=== PATIENT | male | born 1990 | race Caucasian/White ===

== ENCOUNTER 2017-03-15 16:31 | Inpatient (IN) | payer BC ==
--- NOTE | 2017-03-15 16:43 | CPEKG ---
Heart Rate: 126 RR Interval: 476 P-R Interval: 136 QRSD Interval: 106 QT Interval: 328 QTC Interval: 475 P [place]: 78 QRS [place]: 98 T Wave [place]: -14 EKG Severity - ABNORMAL ECG - EKG Impression: SINUS TACHYCARDIA EKG Impression: INFERIOR Q WAVES, PROBABLY NORMAL VARIATION EKG Impression: NONSPECIFIC T ABNORMALITIES, INFERIOR LEADS EKG Impression: BORDERLINE PROLONGED QT INTERVAL Electronically Signed By: Addie Szymanski 15-Mar-2017 22:38:22
[2017-03-15] MEDS ORDERED: NS 1,000 ML IV ONE ×2 (16:50→19:17)
[2017-03-15] MEDS ORDERED: NALOXONE HCL 0.4 MG/ML INJ IVP ONE (16:50)
--- NOTE | 2017-03-15 16:54 | EDPHY ---
H & P HPI/ROS: CHIEF COMPLAINT: Altered mental status, heroin overdose HISTORY OF PRESENT ILLNESS: The patient is a 26-year-old male who is brought in by EMS with reported heroin overdose. The patient was found by his roommates down after injecting IV heroin. The injection occurred sometime between 9:00 a.m. and arrival of EMS. EMS reports that there may or may not have been a short course of CPR. EMS found the patient with strong pulse but apneic. Patient was given Narcan 2 IN followed by 1 IV. Patient's mental status improved. He continued to be hypoxic in route with oxygen saturation in the mid 80s. Patient is deaf. This is new per EMS. REVIEW OF SYSTEMS: Review of systems is limited due to the patient's new deafness and limited responses. Past Medical/Surgical History: Denies Past surgical history: Denies Allergies: Denies Social history: The patient uses heroin. Smoking Status: Unknown if ever smoked Physical Exam: Vitals noted. Tachycardic in the 130s. Systolic pressure is 101. Hypoxic mid 80s. GENERAL: Eyes open, in mild distress. Patient seems slightly somnolent HEENT: Eyes normal to inspection, normal pharynx, no signs of dehydration. NECK: No thyromegaly, no lymphadenopathy, supple. RESPIRATORY: Miild crackles on the left lung, no rhonchi or wheezing. CVS: tachycardia with regular rhythm, no rubs, murmurs, or gallops. ABDOMEN: Soft, nontender, nondistended, no organomegaly. BACK: Normal to inspection, no CVA tenderness. SKIN: Normal color, no rash, warm. Mild diaphoresis. No pallor. EXTREMITIES: No pedal edema, no calf tenderness, no Homans sign or cords, no joint swelling. NEURO/PSYCH: Eyes open but mildly somnolent. Unable to determine orientation. Calm. Moves all extremities purposefully. No obvious cranial nerve deficit. Constitutional: Initial Vital Signs Heart Rate 126 H 03/15/17 16:35 Respiratory Rate 26 H 03/15/17 16:35 Blood Pressure 101/55 L 03/15/17 16:35 O2 Sat (%) 82 L 03/15/17 16:35 O2 Delivery Mode Hi-Flow Nasal Cannula O2 (L/minute) 15 Allergies/Adverse Reactions: No Known Allergies Allergy (Unverified 04/23/17 16:55) Home Medications: Medication Instructions Recorded NK [No Known Home Meds] 03/15/17 Medical Decision Making ED Course/Re-evaluation: In the emergency department I met EMS on arrival. On his arrival he had abnormal vital signs with an elevated heart rate and hypoxia. He was placed on a non-rebreather. Laboratory studies, EKG and chest x-ray were ordered. Head CT and C-spine CT were ordered. After his initial evaluation the patient had new desaturation into the low 80s. Jaw thrust was performed. He was given Narcan 1 mg IV. Patient continued to open his eyes. He was instructed take deep breaths. His oxygen saturation improved to the mid 80s. Patient was given a 2nd dose of Narcan IV. This was given for continued low oxygen saturation. The patient was switched to a high-flow nasal cannula. Portable chest x-ray was obtained. The patient has noted infiltrate/ cephalization on the left lung field. EKG shows sinus tachycardia 126. Normal axis. Normal intervals. No significant ST or T-wave abnormalities. Based on the imaging studies and presentation he was given Levaquin 750 mg IV. Blood cultures were obtained. Lactic acid is pending. I-STAT revealed sodium 143, potassium 4.1, chloride 100, glucose 73, BUN 21, creatinine elevated at 2.2. Hematocrit was 47%. The patient tolerated the high-flow nasal cannula well. CBC is pending. His lactic acid was noted be elevated at 7.1. This could be secondary to being apneic and found down. There is also possibility the patient could be septic due to aspiration pneumonia. My considerations include aspiration pneumonia with sepsis versus flash pulmonary edema. Patient will be given normal saline 30 milliliters/kilogram cautiously and slowly. If his oxygen saturation drops during fluid administration and will be discontinued with concern for fluid overload. I do not feel the patient needs pressors at this time. I discussed the case with Dr. Neal. He accepts the patient. He will admit the patient to the ICU. Patient's girlfriend arrived and gave further history. She states that the patient relapsed on heroin last . She left for work this morning the patient was normal. She was unable to contact him by phone when she returned home she found him on the floor. She states that he recently started smoking cigarettes. She does not know of any other drug use. He has a history of bipolar disorder, depression, anxiety. Patient was noted to have an elevated troponin. The patient's BNP was mildly elevated in the 200s. Dr. Neal ordered a cardiac echo. On recheck the patient was alert. He was maintained his airway. Heart rate was in the 120s. His O2 saturation was in the mid 90s. Differential Diagnosis: My differential includes but is not limited to heroin overdose, aspiration, pulmonary edema, foreign body, pneumonia, electrolyte abnormality, sugar abnormality, renal failure Critical Care Time: The patient required 40 minutes of critical care time. This was exclusive of any unbundled procedure. This was due to extensive time spent at the patient's bedside, frequent rechecks, history from EMS and his girlfriend, consultation with the hospitalist service and admission to the ICU. - Data Points Laboratory Results: Laboratory Results 03/15/17 16:42 03/15/17 16:42 03/15/17 03/15/17 03/15/17 16:43 16:42 16:42 WBC RBC Hgb POC Hgb 16.0 gm/dL gm/dL (14.5-17.3) Hct POC Hct 47 % % (42.8-50.6) MCV MCH MCHC RDW Plt Count MPV Neut % (Auto) Lymph % (Auto) [place] % (Auto) Eos % (Auto) Baso % (Auto) Nucleat RBC Rel Count Absolute Neuts (auto) Absolute Lymphs (auto) Absolute Monos (auto) Absolute Eos (auto) Absolute Basos (auto) Absolute Nucleated RBC Immature Gran % Seg Neutrophils % Band Neutrophils % Lymphocytes % Monocytes % Metamyelocytes % Immature Gran # Absolute Seg Neuts Absolute Band Neuts Absolute Lymphocytes Absolute Monocytes Absolute Metamyelocyte RBC/WBC/PLT Morphology Atypical Lymphocytes Platelet Estimate Giant Platelets PT INR APTT ABG Lactic Acid POC Sodium 143 mEq/L mEq/L (134-144) Sodium 140 mEq/L mEq/L (134-144) POC Potassium 4.1 mEq/L mEq/L (3.3-5.0) Potassium 4.6 mEq/L mEq/L (3.5-5.2) POC Chloride 100 mEq/L mEq/L (96-108) Chloride 102 mEq/L mEq/L (97-110) Carbon Dioxide 23 mEq/l mEq/l (22-31) Anion Gap 15 mEq/L mEq/L (8-16) POC BUN 21 mg/dL mg/dL (7-23) BUN 20 mg/dL mg/dL (7-23) Creatinine 2.1 mg/dL H mg/dL (0.7-1.3) POC Creatinine 2.2 mg/dL H mg/dL (0.8-1.5) Estimated GFR 39 Glucose 70 mg/dL mg/dL (70-100) POC Glucose 73 mg/dL mg/dL (70-100) Calcium 8.7 mg/dL mg/dL (8.5-10.4) Total Bilirubin 0.7 mg/dL mg/dL (0.1-1.4) Troponin I Pending 0.257 ng/mL H ng/mL (0-0.034) NT-Pro-B Natriuret Pep 217 pg/mL H pg/mL (0-125) 03/15/17 03/15/17 03/15/17 16:42 16:42 16:42 WBC 7.31 10^3/uL 10^3/uL (3.80-9.50) RBC 5.58 10^6/uL 10^6/uL (4.40-6.38) Hgb 16.2 g/dL g/dL (13.7-17.5) POC Hgb Hct 47.1 % % (40.0-51.0) POC Hct MCV 84.4 fL fL (81.5-99.8) MCH 29.0 pg pg (27.9-34.1) MCHC 34.4 g/dL g/dL (32.4-36.7) RDW 11.8 % % (11.5-15.2) Plt Count 258 10^3/uL 10^3/uL (150-400) MPV 9.0 fL fL (8.7-11.7) Neut % (Auto) 79.2 % H % (39.3-74.2) Lymph % (Auto) 15.3 % % (15.0-45.0) [place] % (Auto) 4.7 % % (4.5-13.0) Eos % (Auto) 0.3 % L % (0.6-7.6) Baso % (Auto) 0.4 % % (0.3-1.7) Nucleat RBC Rel Count 0.0 % % (0.0-0.2) Absolute Neuts (auto) 5.79 10^3/uL 10^3/uL (1.70-6.50) Absolute Lymphs (auto) 1.12 10^3/uL 10^3/uL (1.00-3.00) Absolute Monos (auto) 0.34 10^3/uL 10^3/uL (0.30-0.80) Absolute Eos (auto) 0.02 10^3/uL L 10^3/uL (0.03-0.40) Absolute Basos (auto) 0.03 10^3/uL 10^3/uL (0.02-0.10) Absolute Nucleated RBC 0.00 10^3/uL 10^3/uL (0-0.01) Immature Gran % 0.1 % % (0.0-1.1) Seg Neutrophils % 40 % % Band Neutrophils % 36 % % Lymphocytes % 20 % % Monocytes % 2 % % Metamyelocytes % 2 % % Immature Gran # 0.01 10^3/uL 10^3/uL (0.00-0.10) Absolute Seg Neuts 2.92 10^/uL 10^/uL (1.70-6.50) Absolute Band Neuts 2.63 10^3/uL H 10^3/uL (0.00-0.70) Absolute Lymphocytes 1.46 10^3/uL 10^3/uL (1.00-3.00) Absolute Monocytes 0.15 10^3/uL L 10^3/uL (0.30-0.80) Absolute Metamyelocyte 0.15 10^3/mL H 10^3/mL (0.00-0.00) RBC/WBC/PLT Morphology NORMAL (NORMAL) Atypical Lymphocytes 1+ H Platelet Estimate ADEQUATE (ADEQ) Giant Platelets PRESENT H PT 14.5 SEC SEC (12.0-15.0) INR 1.14 (0.83-1.16) APTT 30.4 SEC SEC (23.0-38.0) ABG Lactic Acid 7.1 mmol/L H mmol/L (0.5-1.6) POC Sodium Sodium POC Potassium Potassium POC Chloride Chloride Carbon Dioxide Anion Gap POC BUN BUN Creatinine POC Creatinine Estimated GFR Glucose POC Glucose Calcium Total Bilirubin Troponin I NT-Pro-B Natriuret Pep Medications Given: Discontinued Medications Sodium Chloride (Ns) 1,000 mls @ 0 mls/hr IV ONCE ONE PRN Reason: Wide Open Stop: 03/15/17 16:51 Last Admin: 03/15/17 16:35 Dose: 1,000 mls Sodium Chloride (Ns) 2,700 mls @ 5,400 mls/hr 30 ml/kg infuse over 30 min ( 2700 ml) IV EDNOW ONE Stop: 03/15/17 17:34 Last Admin: 03/15/17 17:32 Dose: 2,700 mls Naloxone HCl (Narcan) 2 mg IVP EDNOW ONE Stop: 03/15/17 16:51 Last Admin: 03/15/17 16:35 Dose: 2 mg Point of Care Test Results: 03/15/17 16:43 POC Sodium 143 POC Potassium 4.1 POC Chloride 100 POC BUN 21 POC Creatinine 2.2 H POC Glucose 73 Departure - Departure Disposition: [facility] Inpatient Acute Clinical Impression: Hypoxia Heroin overdose Qualifiers: Encounter type: initial encounter Injury intent: undetermined intent Qualified Code(s): T40.1X4A - Poisoning by heroin, undetermined, initial encounter Deaf Qualifiers: Laterality: bilateral Qualified Code(s): H91.93 - Unspecified hearing loss, bilateral Condition: Good
[2017-03-15 17:00] LABS: % IMMATURE GRANULYOCYTES 0.1 % (0.0-1.1); ABSOLUTE IMMATURE GRANULOCYTES 0.01 10^3/uL (0.00-0.10); ADD DIFF? NO; ADD MORPH? NO; ADD SCAN? YES; ATYPICAL LYMPHOCYTE FLAG 80 (0-99); FRAGMENT RBC FLAG 0 (0-99); HEMATOCRIT 47.1 % (40.0-51.0); HEMOGLOBIN 16.2 g/dL (13.7-17.5); LIPEMIA HEMOLYSIS FLAG 90 (0-99); MEAN CELL HEMOGLOBIN CONCENTR. 34.4 g/dL (32.4-36.7); MEAN CELL VOLUME 84.4 fL (81.5-99.8); PLATELET CLUMPS FLAG 0 (0-99); PLATELET COUNT 258 10^3/uL (150-400); RED BLOOD CELL COUNT 5.58 10^6/uL (4.40-6.38); RED CELL DISTRIBUTION WIDTH 11.8 % (11.5-15.2)
[2017-03-15 17:01] LABS: LEFT SHIFT FLG 130 (0-99)
[2017-03-15 17:05] LABS: APTT 30.4 SEC (23.0-38.0); INR 1.14 (0.83-1.16); PROTIME(PATIENT) 14.5 SEC (12.0-15.0)
[2017-03-15] MEDS ORDERED: NS 2,700 ML IV ONE (17:05)
[2017-03-15 17:10] LABS: ANION GAP 15 mEq/L (8-16); BILIRUBIN,TOTAL 0.7 mg/dL (0.1-1.4); CALCIUM 8.7 mg/dL (8.5-10.4); CARBON DIOXIDE 23 mEq/l (22-31); CHLORIDE 102 mEq/L (97-110); CREATININE 2.1 mg/dL (0.7-1.3); GLOMERULAR FILTRATION RATE 39; GLUCOSE 70 mg/dL (70-100); POTASSIUM 4.6 mEq/L (3.5-5.2); SODIUM 140 mEq/L (134-144)
[2017-03-15 17:22] LABS: TROPONIN I 0.257 ng/mL (0-0.034)
[2017-03-15 17:23] LABS: SCAN POSITIVE
[2017-03-15 17:31] LABS: GIANT PLATELETS PRESENT; PLATELET ESTIMATE ADEQUATE (ADEQ)
[2017-03-15] MEDS ORDERED: ONDANSETRON 4 MG/2 ML VIAL ONE (17:34)
--- NOTE | 2017-03-15 17:45 | PDGENHP ---
History and Physical - Chief Complaint Acute unresponsiveness - History of Present Illness PCP: None HPI: 26-year-old male presenting with acute unresponsiveness characterized as inability to arouse with onset of symptoms early this afternoon. Per patient's girlfriend, he was last seen normal at 9:30 a.m. when she went to work. She reports that he left her house, went to his house, used heroin at some point in time and then stopped answering his phone. She became concerned and went to his home, where she found him lying on his left side, unresponsive, cyanotic, apneic during the early afternoon hours. She ruled him on to his back, called EMS, began administering which she reports as CPR, performing compressions over his sternum for approximately 2 minutes, which apparently awoke the patient and he became somewhat responsive but confused. She did not perform out mouth resuscitation. She does not know whether the patient was pulseless prior to her initiate bacon of compressions. EMS arrived on scene, administered Narcan, noted that his SpO2 was 80%. He was placed on high-flow supplemental oxygen received 4 subsequent doses of Narcan. In the emergency department, he became tachypneic status post Narcan and chest x-ray demonstrated left-sided infiltrate , resulting in administration of levofloxacin. His lactic acid level was 7.1, and was initiated on the septic shock protocol for possible aspiration pneumonia causing septic shock. History Information - Allergies/Home Medication List Allergies/Adverse Reactions: No Known Allergies Allergy (Unverified 03/15/17 16:55) Home Medications: NK [No Known Home Meds] 03/15/17 [Last Taken Unknown] I have personally reviewed and updated: family history, medical history, social history, surgical history - Past Medical History Additional medical history: Heroin addiction, previously in rehab, has reportedly been drug free for around a year and half and reportedly relapsed 4 days ago, last use was reportedly 2 days ago, resulting in withdrawal symptoms over the past 24 hours - Surgical History Reports: no pertinent surgical hx - Family History Additional family history: Patient denies any significant family history - Social History Smoking Status: Current some day smoker (Patient started smoking cigarettes several days ago) Alcohol Use: None Drug Use: Heroin (Injected into the left antecubital fossa) Additional social history: As noted above, long history of rehab and addiction since age 10 Review of Systems ROS: 10pt was reviewed & negative except for what was stated in HPI & below Neurological: Reports: other (Acutely unresponsive, unable to hear since he has been arouse) Physical Exam Temp Pulse Resp BP Pulse Ox 120 H 20 87/56 L 94 03/15/17 17:02 03/15/17 17:02 03/15/17 17:02 03/15/17 17:02 Constitutional: no apparent distress, appears nourished, uncomfortable (Right chest), other (Lethargic but easily arousable) Eyes: PERRL, anicteric sclera, EOMI Ears, Nose, Mouth, Throat: moist mucous membranes, ears appear normal, no oral mucosal ulcers, other (Completely deaf at this time) Cardiovascular: regular rate and rhythym, no murmur, rub, or gallop, No edema Respiratory: rhonchi (On inspiration left anterior and posterior chest), No expiratory wheeze, No bronchial breath sounds Gastrointestinal: normoactive bowel sounds, soft, non-tender abdomen, no palpable masses Skin: other (Mild erythema left antecubital fossa without any induration or fluctuance) Neurologic: other (Patient is completely deaf, following commands) Psychiatric: not anxious, No agitated Lab Data & Imaging Review 03/15/17 16:42 03/15/17 16:42 WBC 7.31 10^3/uL (3.80-9.50) 03/15/17 16:42 RBC 5.58 10^6/uL (4.40-6.38) 03/15/17 16:42 Hgb 16.2 g/dL (13.7-17.5) 03/15/17 16:42 POC Hgb 16.0 gm/dL (14.5-17.3) 03/15/17 16:43 Hct 47.1 % (40.0-51.0) 03/15/17 16:42 POC Hct 47 % (42.8-50.6) 03/15/17 16:43 MCV 84.4 fL (81.5-99.8) 03/15/17 16:42 MCH 29.0 pg (27.9-34.1) 03/15/17 16:42 MCHC 34.4 g/dL (32.4-36.7) 03/15/17 16:42 RDW 11.8 % (11.5-15.2) 03/15/17 16:42 Plt Count 258 10^3/uL (150-400) 03/15/17 16:42 MPV 9.0 fL (8.7-11.7) 03/15/17 16:42 Neut % (Auto) 79.2 % (39.3-74.2) H 03/15/17 16:42 Lymph % (Auto) 15.3 % (15.0-45.0) 03/15/17 16:42 [place] % (Auto) 4.7 % (4.5-13.0) 03/15/17 16:42 Eos % (Auto) 0.3 % (0.6-7.6) L 03/15/17 16:42 Baso % (Auto) 0.4 % (0.3-1.7) 03/15/17 16:42 Nucleat RBC Rel Count 0.0 % (0.0-0.2) 03/15/17 16:42 Absolute Neuts (auto) 5.79 10^3/uL (1.70-6.50) 03/15/17 16:42 Absolute Lymphs (auto) 1.12 10^3/uL (1.00-3.00) 03/15/17 16:42 Absolute Monos (auto) 0.34 10^3/uL (0.30-0.80) 03/15/17 16:42 Absolute Eos (auto) 0.02 10^3/uL (0.03-0.40) L 03/15/17 16:42 Absolute Basos (auto) 0.03 10^3/uL (0.02-0.10) 03/15/17 16:42 Absolute Nucleated RBC 0.00 10^3/uL (0-0.01) 03/15/17 16:42 Immature Gran % 0.1 % (0.0-1.1) 03/15/17 16:42 Seg Neutrophils % 40 % 03/15/17 16:42 Band Neutrophils % 36 % 03/15/17 16:42 Lymphocytes % 20 % 03/15/17 16:42 Monocytes % 2 % 03/15/17 16:42 Metamyelocytes % 2 % 03/15/17 16:42 Immature Gran # 0.01 10^3/uL (0.00-0.10) 03/15/17 16:42 Absolute Seg Neuts 2.92 10^/uL (1.70-6.50) 03/15/17 16:42 Absolute Band Neuts 2.63 10^3/uL (0.00-0.70) H 03/15/17 16:42 Absolute Lymphocytes 1.46 10^3/uL (1.00-3.00) 03/15/17 16:42 Absolute Monocytes 0.15 10^3/uL (0.30-0.80) L 03/15/17 16:42 Absolute Metamyelocyte 0.15 10^3/mL (0.00-0.00) H 03/15/17 16:42 RBC/WBC/PLT Morphology NORMAL (NORMAL) 03/15/17 16:42 Atypical Lymphocytes 1+ H 03/15/17 16:42 Platelet Estimate ADEQUATE (ADEQ) 03/15/17 16:42 Giant Platelets PRESENT H 03/15/17 16:42 PT 14.5 SEC (12.0-15.0) 03/15/17 16:42 INR 1.14 (0.83-1.16) 03/15/17 16:42 APTT 30.4 SEC (23.0-38.0) 03/15/17 16:42 ABG Lactic Acid 7.1 mmol/L (0.5-1.6) H 03/15/17 16:42 POC Sodium 143 mEq/L (134-144) 03/15/17 16:43 Sodium 140 mEq/L (134-144) 03/15/17 16:42 POC Potassium 4.1 mEq/L (3.3-5.0) 03/15/17 16:43 Potassium 4.6 mEq/L (3.5-5.2) 03/15/17 16:42 POC Chloride 100 mEq/L (96-108) 03/15/17 16:43 Chloride 102 mEq/L (97-110) 03/15/17 16:42 Carbon Dioxide 23 mEq/l (22-31) 03/15/17 16:42 Anion Gap 15 mEq/L (8-16) 03/15/17 16:42 POC BUN 21 mg/dL (7-23) 03/15/17 16:43 BUN 20 mg/dL (7-23) 03/15/17 16:42 Creatinine 2.1 mg/dL (0.7-1.3) H 03/15/17 16:42 POC Creatinine 2.2 mg/dL (0.8-1.5) H 03/15/17 16:43 Estimated GFR 39 03/15/17 16:42 Glucose 70 mg/dL (70-100) 03/15/17 16:42 POC Glucose 73 mg/dL (70-100) 03/15/17 16:43 Calcium 8.7 mg/dL (8.5-10.4) 03/15/17 16:42 Total Bilirubin 0.7 mg/dL (0.1-1.4) 03/15/17 16:42 Troponin I 0.257 ng/mL (0-0.034) H 03/15/17 16:42 NT-Pro-B Natriuret Pep 217 pg/mL (0-125) H 03/15/17 16:42 Visualized and Interpreted Chest x-ray results: Yes Chest X-Ray results: other (Dense left-sided infiltrate) Visualized and Interpreted EKG results: Yes EKG Interpretation: Positive for: other (Sinus tachycardia) Assessment & Plan Assessment: 26-year-old male presenting with acute heroin overdose with resultant suspected aspiration pneumonia and possible septic shock Plan: 1. Heroin overdose. Acute, patient admittedly used heroin on the morning of presentation, denies any coingestants, has responded favorably to Narcan x5 doses and does not currently have airway compromise requiring intubation -if patient becomes more encephalopathic, provide him with Narcan -provided SW counseling tomorrow a.m. -given the patient reports his relapses in last 4 days, hepatitis and HIV testing is appropriate at this time but should be pursued in approximately 30 days 2. Acute encephalopathy. Evidenced by global brain dysfunction characterized as unresponsiveness, secondary to the toxic effects of heroin, resulting in acute changes -patient is currently following commands although he is somewhat somnolent 3. Possible aspiration pneumonia. Acute, new problem this provider, further workup indicated. Evidenced by dense left-sided infiltrate with elevated serum lactic acid level as well as respiratory distress and hypoxia -patient reports that he was experiencing a cough prior to his heroin overdose -status post levofloxacin in the emergency department, continue with Levaquin renally dosed -send sputum cultures if available -blood culture sent 4. Possible septic shock. Evidenced by tachycardia plus serum lactic acid level of 7 with suspected aspiration pneumonia, resulting in autonomic dysregulation in the setting of infection -discussed with Dr. Restrepo, we have agreed to initiate the sepsis protocol, serial lactate, IV fluid bolus, IV antibiotics -if the patient demonstrates worsening respiratory distress, will discontinue IV fluids -will get echocardiogram to evaluate for any pericardial trauma in the setting of reported CPR given the possibility that his infiltrates on chest x-ray are more congestive heart failure in nature 5. Acute kidney injury. Secondary to hypovolemia in the setting of hypoperfusion in the setting of overdose, give IV fluids, monitor urine output, repeat serum creatinine level in a.m. 6. Acute hypoxic respiratory failure. Evidenced by SpO2 around 80% on presentation with objective tachypnea respiratory rate of 26 status post Narcan , as well as visibly labored breathing, requiring high-flow oxygen with non- rebreather mask, most likely secondary to a combination of initial heroin overdose and then subsequent airspace disease from aspiration pneumonia -monitor respiratory status closely, as the patient could develop acute CHF in the setting of recent chest trauma and potential infiltrates on chest x-ray -continue high-flow oxygen, discussed with respiratory therapist 7. Deafness. Acute, potentially secondary to acute heroin overdose, continue to monitor closely, hold on Neurology consultation as patient's condition may rather rapidly reverse itself with appropriate treatment of the conditions as outlined above. Diet. NPO, DIRECTOR OF RESIDENTIAL SERVICES eval Prophylaxis. Moderate risk patient, SCDs, hold pharmacologic prophylaxis until head CT has been performed Code status. Full Disposition. Anticipated discharge uncertain this time, anticipated length stay is greater than 48 hours warranting inpatient admission status for acute heroin overdose resulting in possible aspiration pneumonia, possible septic shock, acute kidney injury, acute hypoxic respiratory failure. 60 minutes of critical care time spent with this patient, at bedside, coordinating with the emergency department provider, addressing the issues outlined above, the patient remains critically ill with high risk of morbidity and/or mortality.
[2017-03-15] MEDS ORDERED: ONDANSETRON 4 MG/2 ML VIAL IVP ONE (17:54)
[2017-03-15] MEDS ORDERED: NALOXONE HCL 2 MG/2 ML SYR IVP ONE (17:56)
[2017-03-15] MEDS: NS 1,000 ML IV SCH ×2 (18:45→22:18)
[2017-03-15] MEDS ORDERED: ALTEPLASE 2 MG VIAL IVP PRN (19:16)
[2017-03-15] MEDS ORDERED: NOREPINEPHRINE BITARTRATE 4 MG in D5W 500 ML IV SCH (19:30)
[2017-03-15] MEDS: NOREPINEPHRINE/NS 500 ML IV SCH (19:47)
--- NOTE | 2017-03-15 20:04 | ECHO ---
[id number] + + [address] : : [place] [address] : : [phone] + Adult Echocardiographic Report + -+ :Name: DAVID CARY [id number] Date: 03/15/2017 06:55 PM : : Hospital Admission Number: [id number] : :: 1990 Gender: Male Height: 74 in : :Age: 26 yrs Race: WH Weight: 215 lb : :Reason For Study: Eval LV Fx : : BSA: 2.2 meters 2: :History: Hypotension, IVDA overdose : + -+ MMode/2D Measurements \T\ Calculations IVSd: 0.97 cm LVIDd: 4.7 cm FS: 17.9 % Ao root diam: LVPWd: 0.96 cm LVIDs: 3.9 cm EDV(Teich): 2.6 cm 103.1 ml ACS: 1.7 cm ESV(Teich): 64.7 ml EF(Teich): 37.3 % LVLd ap4: 7.5 cm SV(MOD-sp4): EDV(MOD-sp4): 27.0 ml 75.0 ml LVLs ap4: 6.7 cm ESV(MOD-sp4): 48.0 ml EF(MOD-sp4): 36.0 % Normal Measurement Values: + + :LVIDd (3.5-5.7cm) IVSd (0.6-1.1cm) LVPWd (0.6-1.1cm) Aortic Root (2.0-3.7cm)Left Atrium (1.5-4.0cm): :LV Vol(d) (76-115ml) LV Vol(s) (29-48ml) Ejec Fraction (50-65%)PV Los (0.6- 1.2m/s) TV Los (0.4-1.0m/s) : :MV E Los (0.8-1.0m/s)MV A Los (0.3-1.0m/s)LVOT Los (0.7-1.2m/s) Asc Ao Los ( 0.9-1.8m/s) : + + Doppler Measurements \T\ Calculations MV E max los: Ao V2 max: LV V1 max: TR max los: 67.1 cm/sec 101.8 cm/sec 51.3 cm/sec 257.9 cm/sec Ao max PG: LV V1 max PG: TR max P.1 mmHg 1.1 mmHg 26.6 mmHg RAP systole: 5.0 mmHg RVSP(TR): 31.6 mmHg Left Ventricle The left ventricle is normal in size. There is normal left ventricular wall thickness. Ejection Fraction = 30-35%%. LV funciton is moderately reduced. There is moderate global hypokinesis of the left ventricle. Right Ventricle The right ventricle is normal size. The right ventricular systolic function is mildly reduced. Atria The left atrial size is normal. Right atrial size is normal. Mitral Valve The mitral valve is normal in structure and function. There is no evidence of mitral valve prolapse. There is no mitral valve stenosis. There is no mitral regurgitation noted. Tricuspid Valve The tricuspid valve is normal in structure and function. There is trace tricuspid regurgitation. Right ventricular systolic pressure is normal. Aortic Valve The aortic valve opens well. There is no aortic stenosis. There is no aortic insufficiency. Pulmonic Valve The pulmonic valve is not well visualized. Great Vessels The aortic root is normal size. Pericardium/Pleural There is no pericardial effusion. There is no pleural effusion. Conclusion A complete two-dimensional transthoracic echocardiogram was performed (2D, M-mode, Doppler and color flow Doppler). The mitral valve is normal in structure and function. There is no mitral regurgitation noted. Right ventricular systolic pressure is normal. The aortic valve opens well. There is no pericardial effusion. There is trace tricuspid regurgitation. There is no pleural effusion. Ejection Fraction = 30-35%%. LV funciton is moderately reduced. There is moderate global hypokinesis of the left ventricle. Final Reading Physician: Rolly Arteaga electronically signed on 03/15/2017 08:03 PM Ordering Physician: Jevon Neal Performed By: Lucien Day, CLEMENCIACS
[2017-03-15] MEDS ORDERED: DULoxetine 60 MG CAP PO SCH (21:00)
[2017-03-15] MEDS ORDERED: lamoTRIgine 25 MG TAB PO SCH (21:00)
[2017-03-15 21:56] LABS: % IMMATURE GRANULYOCYTES 0.4 % (0.0-1.1); ABSOLUTE IMMATURE GRANULOCYTES 0.06 10^3/uL (0.00-0.10); ADD DIFF? NO; ADD MORPH? NO; ADD SCAN? YES; ATYPICAL LYMPHOCYTE FLAG 40 (0-99); FRAGMENT RBC FLAG 0 (0-99); HEMATOCRIT 42.6 % (40.0-51.0); HEMOGLOBIN 14.5 g/dL (13.7-17.5); LIPEMIA HEMOLYSIS FLAG 90 (0-99); MEAN CELL HEMOGLOBIN 28.6 pg (27.9-34.1); MEAN PLATELET VOLUME 9.6 fL (8.7-11.7); PLATELET CLUMPS FLAG 0 (0-99); PLATELET COUNT 300 10^3/uL (150-400); RED BLOOD CELL COUNT 5.07 10^6/uL (4.40-6.38); RED CELL DISTRIBUTION WIDTH 11.9 % (11.5-15.2)
[2017-03-15 22:00] LABS: MIXED VENOUS O2 SATURATION 81 % (65-75)
[2017-03-15 22:09] LABS: ALANINE AMINOTRANSFERASE 227 IU/L (21-72); ALBUMIN 3.3 g/dL (3.5-5.0); ALKALINE PHOSPHATASE 98 IU/L (38-126); ANION GAP 6 mEq/L (8-16); ASPARTATE AMINOTRANSFERASE 285 IU/L (17-59); BILIRUBIN,TOTAL 0.5 mg/dL (0.1-1.4); CALCIUM 7.1 mg/dL (8.5-10.4); CARBON DIOXIDE 23 mEq/l (22-31); CHLORIDE 107 mEq/L (97-110); CREATININE 1.4 mg/dL (0.7-1.3); GLOMERULAR FILTRATION RATE > 60; GLUCOSE 69 mg/dL (70-100); SODIUM 136 mEq/L (134-144); TOTAL PROTEIN 5.7 g/dL (6.3-8.2)
[2017-03-15] MEDS: methylPREDNISolone SOD SUCC 125 MG/2 ML VIAL IVP SCH (22:09)
[2017-03-15 22:13] LABS: POTASSIUM 6.6 mEq/L (3.5-5.2)
[2017-03-15 22:15] LABS: LEFT SHIFT FLG 170 (0-99)
[2017-03-15] MEDS: DULoxetine 60 MG CAP PO SCH (22:15)
[2017-03-15] MEDS: MIRTAZAPINE 30 MG TAB PO SCH (22:17)
[2017-03-15 22:20] LABS: TROPONIN I 0.836 ng/mL (0-0.034)
[2017-03-15 22:51] LABS: ANION GAP 6 mEq/L (8-16); CALCIUM 6.5 mg/dL (8.5-10.4); CARBON DIOXIDE 21 mEq/l (22-31); CHLORIDE 108 mEq/L (97-110); CREATININE 1.2 mg/dL (0.7-1.3); GLOMERULAR FILTRATION RATE > 60; GLUCOSE 118 mg/dL (70-100); POTASSIUM 5.7 mEq/L (3.5-5.2); SODIUM 135 mEq/L (134-144)
[2017-03-15 22:53] LABS: SCAN POSITIVE
[2017-03-15 22:58] LABS: PLATELET ESTIMATE ADEQUATE (ADEQ)
[2017-03-16] MEDS: methylPREDNISolone SOD SUCC 125 MG/2 ML VIAL IVP SCH ×5 (00:09→11:27)
[2017-03-16] MEDS: NS 1,000 ML IV SCH (01:48)
[2017-03-16] MEDS: NOREPINEPHRINE/NS 500 ML IV SCH (03:46)
[2017-03-16 05:49] LABS: % IMMATURE GRANULYOCYTES 0.4 % (0.0-1.1); ABSOLUTE IMMATURE GRANULOCYTES 0.05 10^3/uL (0.00-0.10); ADD DIFF? NO; ADD MORPH? NO; ADD SCAN? YES; ATYPICAL LYMPHOCYTE FLAG 20 (0-99); FRAGMENT RBC FLAG 0 (0-99); HEMATOCRIT 36.5 % (40.0-51.0); HEMOGLOBIN 12.8 g/dL (13.7-17.5); LIPEMIA HEMOLYSIS FLAG 90 (0-99); MEAN CELL HEMOGLOBIN 29.4 pg (27.9-34.1); MEAN CELL HEMOGLOBIN CONCENTR. 35.1 g/dL (32.4-36.7); MEAN CELL VOLUME 83.7 fL (81.5-99.8); MEAN PLATELET VOLUME 9.5 fL (8.7-11.7); PLATELET CLUMPS FLAG 0 (0-99); PLATELET COUNT 185 10^3/uL (150-400); RED BLOOD CELL COUNT 4.36 10^6/uL (4.40-6.38); RED CELL DISTRIBUTION WIDTH 12.1 % (11.5-15.2)
[2017-03-16 05:50] LABS: LEFT SHIFT FLG 220 (0-99)
[2017-03-16 06:09] LABS: ALANINE AMINOTRANSFERASE 182 IU/L (21-72); ALKALINE PHOSPHATASE 71 IU/L (38-126); ANION GAP 5 mEq/L (8-16); ASPARTATE AMINOTRANSFERASE 174 IU/L (17-59); BILIRUBIN,TOTAL 0.4 mg/dL (0.1-1.4); CARBON DIOXIDE 24 mEq/l (22-31); CHLORIDE 108 mEq/L (97-110); GLOMERULAR FILTRATION RATE > 60; GLUCOSE 124 mg/dL (70-100); MAGNESIUM 1.6 mg/dL (1.6-2.3); POTASSIUM 5.3 mEq/L (3.5-5.2); SODIUM 137 mEq/L (134-144); TOTAL PROTEIN 5.3 g/dL (6.3-8.2)
[2017-03-16 06:18] LABS: SCAN POSITIVE
[2017-03-16 06:20] LABS: TROPONIN I 0.902 ng/mL (0-0.034)
[2017-03-16 06:21] LABS: PLATELET ESTIMATE ADEQUATE (ADEQ)
--- NOTE | 2017-03-16 09:44 | HOSPPROG ---
Hospitalist Progress Note Assessment/Plan: 26 yo M w heroin overdose found down now w L sided pneumonia sepsis: present on admit but septic physiology has resolved pneumonia: L sided, likely aspiration. 02 requirement coming down change abx to unasyn/azithro encephalopathy: appears to have resolved follow heroin overdose: remarkably joanna advised of the risk of IVDU proph: lmwh dispo: to floor Subjective: cxr's w progressive L sided air space disease (interp by me). case d/w dr corral Objective: Vital Signs Temp Pulse Resp BP Pulse Ox 36.7 C 91 15 106/58 L 97 03/15/17 20:00 03/16/17 06:00 03/16/17 06:00 03/16/17 06:00 03/16/17 06:00 Laboratory Results 03/16/17 05:40 03/16/17 05:40 03/15/17 03/16/17 03/17/17 05:59 05:59 05:59 Intake Total 5606 Output Total 1625 Balance 3981 PT 14.5 SEC (12.0-15.0) 03/15/17 16:42 INR 1.14 (0.83-1.16) 03/15/17 16:42 - Physical Exam Constitutional: no apparent distress, appears nourished Eyes: PERRL, anicteric sclera Ears, Nose, Mouth, Throat: moist mucous membranes, hearing normal Cardiovascular: regular rate and rhythym, no murmur, rub, or gallop Respiratory: other (rhinchi and crackles on L. good air movement. no wheeze) Gastrointestinal: soft, non-tender abdomen, no palpable masses Genitourinary: No abraham in urethra Skin: warm, normal color Musculoskeletal: full muscle strength, no muscle tenderness ICD10 Worksheet Patient Problems: Problems Problem Status Onset Deaf Acute Heroin overdose Acute Hypoxia Acute
[2017-03-16] MEDS: AMPICILLIN/SULBACTAM 3 GM in NS 100 ML IV SCH ×3 (11:37→23:58)
[2017-03-16] MEDS: DULoxetine 60 MG CAP PO SCH (20:33)
[2017-03-16] MEDS: MIRTAZAPINE 30 MG TAB PO SCH (20:33)
[2017-03-16] MEDS ORDERED: LAMICTAL 200 MG PO SCH ×2 (21:00)
[2017-03-17] MEDS: AMPICILLIN/SULBACTAM 3 GM in NS 100 ML IV SCH ×2 (05:02→11:50)
[2017-03-17] MEDS ORDERED: HYDROCODONE/APAP 5/325 TAB PO PRN (05:44)
[2017-03-17] MEDS ORDERED: IBUPROFEN 200 MG TAB PO PRN (05:52)
[2017-03-17 06:11] VITALS: RESP 16; TEMP 97.7
[2017-03-17 06:51] LABS: % IMMATURE GRANULYOCYTES 0.5 % (0.0-1.1); ABSOLUTE IMMATURE GRANULOCYTES 0.05 10^3/uL (0.00-0.10); ADD DIFF? NO; ADD MORPH? NO; ADD SCAN? NO; ATYPICAL LYMPHOCYTE FLAG 20 (0-99); FRAGMENT RBC FLAG 0 (0-99); HEMATOCRIT 31.9 % (40.0-51.0); HEMOGLOBIN 11.1 g/dL (13.7-17.5); LEFT SHIFT FLG 30 (0-99); LIPEMIA HEMOLYSIS FLAG 90 (0-99); MEAN CELL HEMOGLOBIN 28.9 pg (27.9-34.1); MEAN CELL HEMOGLOBIN CONCENTR. 34.8 g/dL (32.4-36.7); MEAN CELL VOLUME 83.1 fL (81.5-99.8); MEAN PLATELET VOLUME 9.8 fL (8.7-11.7); PLATELET CLUMPS FLAG 10 (0-99); PLATELET COUNT 164 10^3/uL (150-400); RED BLOOD CELL COUNT 3.84 10^6/uL (4.40-6.38); RED CELL DISTRIBUTION WIDTH 12.5 % (11.5-15.2)
[2017-03-17 07:12] LABS: ANION GAP 5 mEq/L (8-16); CARBON DIOXIDE 30 mEq/l (22-31); CHLORIDE 107 mEq/L (97-110); CREATININE 0.9 mg/dL (0.7-1.3); GLOMERULAR FILTRATION RATE > 60; GLUCOSE 93 mg/dL (70-100); POTASSIUM 3.9 mEq/L (3.5-5.2); SODIUM 142 mEq/L (134-144)
[2017-03-17] MEDS ORDERED: AZITHROMYCIN IV 500 MG in D5W 250 ML IV SCH (09:00)
--- NOTE | 2017-03-17 11:17 | HOSPPROG ---
Hospitalist Progress Note Assessment/Plan: 26 yo M w heroin overdose found down now w L sided pneumonia sepsis: present on admit but septic physiology has resolved pneumonia: L sided, likely aspiration. 02 requirement coming down change abx to unasyn/azithro encephalopathy: appears to have resolved follow heroin overdose: remarkably joanna advised of the risk of IVDU proph: lmwh dispo: to floor Subjective: on RA Objective: Vital Signs Temp Pulse Resp BP Pulse Ox 36.5 C 72 16 130/79 H 95 03/17/17 08:00 03/17/17 08:00 03/17/17 08:00 03/17/17 08:00 03/17/17 08:00 Laboratory Results 03/17/17 06:35 03/17/17 06:35 03/16/17 03/17/17 03/18/17 05:59 05:59 05:59 Intake Total 5606 1725 Output Total 1625 Balance 3981 1725 PT 14.5 SEC (12.0-15.0) 03/15/17 16:42 INR 1.14 (0.83-1.16) 03/15/17 16:42 - Physical Exam Constitutional: no apparent distress, appears nourished Eyes: PERRL, anicteric sclera Ears, Nose, Mouth, Throat: moist mucous membranes, hearing normal Cardiovascular: regular rate and rhythym, no murmur, rub, or gallop Respiratory: no respiratory distress, other Gastrointestinal: normoactive bowel sounds, soft, non-tender abdomen Genitourinary: No abraham in urethra Skin: warm, normal color Musculoskeletal: full muscle strength ICD10 Worksheet Patient Problems: Problems Problem Status Onset Deaf Acute Heroin overdose Acute Hypoxia Acute
[2017-03-17 11:21] VITALS: BP 127/78; PULSE 90; O2SAT 97
--- NOTE | 2017-03-17 11:41 | GDS ---
[f rep st] DISCHARGE SUMMARY DISCHARGE DIAGNOSES: 1. Heroin overdose with possible pulselessness. He received CPR for brief a period. 2. Aspiration pneumonia. HOSPITAL COURSE: Please see admission history and physical by Dr. Johnnie Neal. The patient present ed after being found somnolent and possibly pulseless, as girlfriend began CPR. When EMS arrived, s tatus 80%. He had performed Narcan. Chest imaging revealed right-sided pneumonia. He was started o n Unasyn. He did have a positive troponin consistent with chest compression. He had elevated LFTs that resolved. He never required pressors. The patient is now on room air and discharged home. Bl ood cultures were drawn that remained negative. He is afebrile since presentation. He is discharge d home on a course of Augmentin and doxycycline. He is advised to abstain from using heroin for the rest of his life. /[id number]/MODL
--- NOTE | 2017-03-20 14:25 | PQFORM ---
PHYSICIAN QUERY FORM Needs Your Response This query form is being sent to you to assure this patient record is coded properly. Please respond to the question below: AUTO SELF SERVICE STATION ATTENDANT QUESTION: Dear Dr. Godoy, It is stated in the H&P as well as the hospitalist progress notes dated 03/16- 03/17 that this patient had the diagnosis of Sepsis shock. Evident by tachycardia in the 130's, Serum lactic level of 7 and worsening respiratory distress. After study, should the diagnosis of 'Sepsis with sepsis shock' be included in the discharge summary? Yes __X____ No Other more appropriate diagnosis Unable to determine Thank you LOREN Giles HIM/Coding Dept. [phone] INSTRUCTIONS FOR RESPONSE: Answer question by clicking on the "Edit Document" button. Move cursor to area below the stars. When complete, hit "Save." Click on the "Sign" button, then click "Sign" again. Type in your PIN and hit "Enter." MTDD
--- NOTE | 2017-03-20 14:36 | PQFORM ---
PHYSICIAN QUERY FORM Needs Your Response This query form is being sent to you to assure this patient record is coded properly. Please respond to the question below: DIRECTOR ADVANCED QUESTION: Dear Dr. 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 Yes ___X____ No Other more appropriate diagnosis Unable to determine Thank you LOREN Giles HIM/Coding Dept. [phone] INSTRUCTIONS FOR RESPONSE: Answer question by clicking on the "Edit Document" button. Move cursor to area below the stars. When complete, hit "Save." Click on the "Sign" button, then click "Sign" again. Type in your PIN and hit "Enter." MTDD
== END 2017-03-17 13:13 | disposition home or self-care (01) | DRG 871 ==
LOC: EDBD 16:31 → OBSVTOIN 17:07 → F2N 18:09 → F3E 03-17 05:59
PROVIDERS: ADMIT Internal Medicine; ATTEND Internal Medicine
PROC: 02HV33Z Insertion of Infusion Device into Superior Vena Cava, Percutaneous Approach (ICD-10-PCS; principal; 2017-03-16)
DX: A41.9 Sepsis, unspecified organism (principal); J69.0 Pneumonitis due to inhalation of food and vomit; G92 Toxic encephalopathy; R65.21 Severe sepsis with septic shock; F11.20 Opioid dependence, uncomplicated; T40.1X4A Poisoning by heroin, undetermined, initial encounter; Z72.0 Tobacco use
CPT/HCPCS: 82947-QW; 92523-GN; 96365; C1751; J0295; J0456; J1956; J2310; J2405